=== PATIENT | male | born 1935 | race Caucasian/White ===

== ENCOUNTER → 2016-10-18 | Outpatient (CLI) | payer OTHER ==
[~2016-10-18] MED LIST: CALCIUM + D 6001 TA1; COUMADIN PO; DYAZIDE 37.5/251 CAP PO; DYAZIDE 371 CAP 37.5; KEFLEX500 M2 PO; LIPITOR; LISINOPRIL PO; LOPRESSOR PO; PRAVACHOL PO; TRAMADOL HCL50 M1; ZYLOPRIM PO
--- NOTE | ~2016-10-18 | CT4 ---
[facility] A Service of [facility] RADIOLOGY TEXT RESULTS PATIENT: JUAN F MAIER LOCATION: [facility] : 34 UNIT #: [id number] AGE: [address]: Shira Whitaker APRN SEX: M ORDER DR: [id number] [place] [id number] O MR#: [id number] Acc #: [id number] NAME: JUAN F MAIER : 1935 SEX: M STUDY DATE/TIME: 10/18/2016 13:32 UNIT: [facility] ROOM: STUDY DESCRIPTION: CT Abd and Pelv Wo Cont Attending Physician: Shira Whitaker A.P.R.N. Referring Physician: Shira Whitaker A.P.R.N. Ordering Physician: Shira Whitaker A.P.R.N. Primary Care Physician: Terry Haley M.D. MEDICAL IMAGING REPORT This report is preliminary unless electronic signature is present. EXAM CT abdomen and pelvis without contrast INDICATION Hematuria for the past week. PROCEDURE Unenhanced CT of the abdomen and pelvis. COMPARISON 09/30/[address] exam was performed with one or more of the following radiation dose reduction techniques: automatic exposure control, adjustment of mA and/or kV according to patient size, and iterative reconstruction. FINDINGS ABDOMEN WITHOUT CONTRAST: Included lung bases clear. Liver, spleen, adrenal glands, pancreas have an unremarkable unenhanced appearance. There is a tiny stone in the gallbladder. No evidence for inflammation. There are a few uncomplicated sigmoid diverticula. Appendix is normal. There is a left-sided double-J stent in place appropriately positioned. No hydronephrosis. Tiny nonobstructing calculus upper pole left kidney and in the right mid kidney. There is some stranding along the mid to distal left ureter suggesting inflammation. PELVIS WITHOUT CONTRAST: Previous prostatectomy. No pelvic mass or fluid. No aggressive appearing bone lesion. [facility] A Service of [facility] RADIOLOGY TEXT RESULTS PATIENT: JUAN F MAIER LOCATION: [facility] #: [id number] : 34 UNIT #: [id number] AGE: [address]: Shira Whitaker APRN SEX: M ORDER DR: IMPRESSION 1. Left-sided double-J stent in place. There is mild stranding along the mid to distal left ureter suggesting inflammation. 2. Small bilateral nonobstructing renal calculi. 3. Previous prostatectomy. 1. Dictated by... Tio Ford M.D. THIS IS AN ELECTRONICALLY VERIFIED REPORT Tio Ford M.D. at 10/18/2016 4:51 PM Ciaran TD: 10/18/2016 15:26 JOB #: [id number] MEDICAL IMAGING REPORT Page 1 of 1
== END | disposition home or self-care (01) ==
LOC: SCT 12:51
DX: R31.9 Hematuria, unspecified (principal); Q62.0 Congenital hydronephrosis; N20.0 Calculus of kidney; Z90.79 Acquired absence of other genital organ(s)
CPT/HCPCS: 74176

== ENCOUNTER → 2017-03-10 | Outpatient (CLI) | payer OTHER ==
--- NOTE | ~2017-03-10 | US85 ---
[facility] A Service of [facility] RADIOLOGY TEXT RESULTS PATIENT: JUAN F MAIER LOCATION: SN : 34 UNIT #: [id number] AGE: [address]: SINGH COREA SEX: M ORDER DR: [id number] [address] [address] [id number] O MR#: [id number] Acc #: [id number] NAME: JUAN F MAIER : 1935 SEX: M STUDY DATE/TIME: 03/10/2017 13:11 UNIT: [facility] ROOM: STUDY DESCRIPTION: [facility] Stdy Attending Physician: Singh Corea Aprn Referring Physician: Singh Corea Aprn Ordering Physician: Singh Corea Aprn Primary Care Physician: Terry Haley M.D. MEDICAL IMAGING REPORT This report is preliminary unless electronic signature is present. EXAM Right lower extremity venous Doppler. INDICATIONS Right calf pain and swelling for 1.5 weeks. Patient is currently on Coumadin. TECHNIQUE Ramirez-scale, color Doppler and spectral Doppler waveform analysis was performed through the right lower extremity. FINDINGS Patient does appear to have some occlusive thrombus within the mid-right superficial femoral vein. Right common femoral and deep femoral veins are patent and compressible. Veins of the right calf were not visualized. Saphenous vein appeared to be patent and compressible. IMPRESSION Study is positive for DVT involving a portion of the superficial femoral vein within the mid thigh. Please note the veins of the calf are not adequately assessed to exclude the presence of DVT. There is no evidence of SVT. Dictated by... Jessa Perales M.D. THIS IS AN ELECTRONICALLY VERIFIED REPORT Jessa Perales M.D. at 03/11/2017 4:57 PM AFF/psc TD: 03/11/2017 05:17 [facility] A Service of [facility] RADIOLOGY TEXT RESULTS PATIENT: JUAN F MAIER LOCATION: [facility] : 34 UNIT #: [id number] AGE: [address]: SINGH COREA SEX: M ORDER DR: SEKOU #: [id number] MEDICAL IMAGING REPORT Page 1 of 1
== END | disposition home or self-care (01) ==
LOC: SNIV 12:20
DX: R60.0 Localized edema (principal); I82.411 Acute embolism and thrombosis of right femoral vein
CPT/HCPCS: 93971

== ENCOUNTER → 2017-03-31 | Outpatient (CLI) | payer OTHER ==
--- NOTE | ~2017-03-31 | US84 ---
[id number] [address] [id number] O MR#: [id number] Acc #: [id number] NAME: JUAN F MAIER : 1935 SEX: M STUDY DATE/TIME: 03/31/2017 13:27 UNIT: [facility] ROOM: STUDY DESCRIPTION: US LE Veins Complete Brad Stdy Attending Physician: Anupam Deras D.O. Ordering Physician: Anupam Deras D.O. Primary Care Physician: Terry Haley M.D. MEDICAL IMAGING REPORT This report is preliminary unless electronic signature is present. EXAM Bilateral lower extremity venous Doppler INDICATION Right lower extremity DVT. This was initially identified March 10, 2017. This is a followup study. TECHNIQUE Ramirez-scale, color Doppler and spectral Doppler waveform analysis was performed through the right lower extremity. FINDINGS The patient's right common femoral and deep femoral veins are patent and compressible. The patient is again noted to have occlusive thrombus identified within the superficial femoral vein, within its mid portion. This is unchanged when compared to the prior examination. Clot also involves the caudal superficial femoral vein although there is probably a small amount of flow through the vessel. The patient's right popliteal vein does appear to be patent and compressible as is the saphenous vein. The patient's peroneal and anterior tibial vessels are not well seen. Patient's posterior tibial artery does appear to be patent. There is no evidence of DVT or SVT within the left lower extremity. IMPRESSION 1. 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 This was also present on the prior examination. Patient's popliteal vein on the right does appear to be patent and compressible. 2. Only the posterior tibial vein within the right calf can be seen. It does appear to be patent. 3. No evidence of DVT or SVT within the left lower extremity. Dictated by... Jessa Perales M.D. THIS IS AN ELECTRONICALLY VERIFIED REPORT Jessa Perales M.D. at 04/02/2017 8:37 AM PATTI/sanjay TD: 04/01/2017 11:50 JOB #: [id number] MEDICAL IMAGING REPORT Page 1 of 1
== END | disposition home or self-care (01) ==
LOC: SNIV 12:27
DX: I82.419 Acute embolism and thrombosis of unspecified femoral vein (principal); I82.411 Acute embolism and thrombosis of right femoral vein
CPT/HCPCS: 93970